=== PATIENT | female | born 1995 | race Caucasian/White ===

== ENCOUNTER 2022-09-03 14:31 | Observation (INO) ==
[2022-09-03 15:46] LABS: Basophils # (auto) 0.02 K/uL (0-0.2); Basophils % (auto) 0.3 %; Eosinophils # (auto) 0.04 K/uL (0-0.50); Eosinophils % (auto) 0.5 %; Hematocrit (blood only) 33.3 % (37.0-47.0); Hemoglobin 10.6 g/dl (12.0-16.0); Immature Granulocytes # (auto) 0.08 K/uL (0.01-0.20); Lymphocytes # (auto) 2.02 K/uL (1.2-3.4); Lymphocytes % (auto) 25.7 %; Mean Corpuscular Hemoglobin 25.9 pg (25.0-34.0); Mean Corpuscular Hgb Conc 31.8 g/dL (32.0-36.0); Mean Corpuscular Volume 81.2 fL (80.0-100.0); Mean Platelet Volume 11.5 fL (9.4-12.4); Monocytes % (auto) 7.6 %; Neutrophils # (auto) 5.09 K/uL (1.40-6.50); Neutrophils % (auto) 64.9 %; Platelet Count 181 K/uL (130-400); RDW Coefficient of Variation 14.5 % (11.5-14.5); RDW Standard Deviation 42.2 fL (36.4-46.3); White Blood Count 7.85 K/ul (4.8-10.8)
[2022-09-03 15:53] LABS: Albumin Globulin Ratio 1.3 (0.9-2); Albumin Level 3.4 gm/dl (3.4-5.0); Bilirubin,Total 0.3 mg/dl (0.2-1.0); Calcium 8.8 mg/dl (8.6-10.3); Creatinine Clr Calc Pharmacy 123.4 ml/min; Est GFR (African American) 139.2 ml/min; Est GFR (Non-African American) 120.1 ml/min; Globulin 2.7 gm/dl (2.5-4.0); Potassium 4.1 mmol/L (3.5-5.1); Total Protein 6.1 gm/dl (6.0-8.3)
[2022-09-03 15:58] LABS: Troponin I High Sensitivity 14.3 pg/ml (0-14)
[2022-09-03 16:19] LABS: INR 0.9 (0.9-1.1); Partial Thromboplastin Ratio 0.9; Partial Thromboplastin Time 23.6 Seconds (21.0-31.0); Prothrombin Time 9.9 Seconds (9.0-12.0)
--- NOTE | 2022-09-03 18:53 | Emergency Department Note ---
Impression & Plan Pre-eclampsia, Elevated troponin ED Provider Note INFORMANT: Patient ED PROVIDER(S): Lg Roca DO CHIEF COMPLAINT: Edema, weight gain, hypertension, preeclampsia PLAN: Disposition: Admission Outpatient prescription management: none Discussion with: [employer], Dr. Leal from cardiology, I spoke with the hospitalist, who will see the patient for admission/observation and further evaluation and consultation. MEDICAL DECISION MAKING: This is a 27-year-old female who presents to the ED with a chief complaint of evaluation for chest pain. The patient states that she saw her [employer] today for swelling of her legs, face and hands as well as a 13 pound weight gain over the past week. She was then noted to have a blood pressure 160/98 in the office. The patient's states that she was sent to L&D and the baby was checked and it was okay. Because she had some chest discomfort she was sent down here for evaluation. The patient states that it is left-sided and feels like a pressure. It sometimes radiates to the back and to the left shoulder. Her breathing se ems to be fine. Denies any other complaints at this time. No headaches. No visual changes. Her blood pressure here was 145/95. Exam reveals a gravid abdomen. Otherwise no abnormalities. Lungs are clear. Heart is regular rate and rhythm. The patient's twelve-lead EKG shows a normal sinus rhythm at a rate of 68. The white blood cell count was normal. Hemoglobin is 10.8. Platelet count is 181. Chemistry panel was unremarkable. Troponin is mildly elevated at 14.3. A second troponin was 21.3 CT scan of the chest did not show PE or other acute abnormality. I did speak with Dr. Leal from cardiology service. He recommends echocardiogram. I spoke with the hospitalist as well as the agency owner. The patient will be admitted to the gynecology service with medicine consultation. Triage Nursing notes reviewed. Vital Signs: reviewed Prior /Outside records reviewed: none Differential diagnosis: Diagnostics, as interpreted by me: 12 lead ECG: Normal sinus rhythm rate of 68. No ST elevation. No PVCs. Normal QTc Cardiac Monitoring ordered: Normal sinus rhythm in the 60s to 70s Medical decision rules: none Imaging studies: CT scan of the chest: No pneumothorax or obvious PE Procedures: none. Critical care: none. HPI: See MDM above. PAST MEDICAL HISTORY: See Below PAST SURGICAL HISTORY: See Below SOCIAL HISTORY: See Below HOME MEDICATIONS: See Below ALLERGIES: See Below VITALS: See Below PHYSICAL EXAMINATION: See MDM for positive findings otherwise unremarkable. CONSTITUTIONAL/VITAL SIGNS: Reviewed GENERAL:done as appropriate INTEGUMENTARY: done as appropriate HEAD: done as appropriate EYES: done as appropriate RESPIRATORY: done as appropriate CARDIOVASCULAR:done as appropriate GI/ABDOMEN:done as appropriate EXTREMITIES: done as appropriate NEUROLOGICAL: done as appropriate PSYCHIATRIC:done as appropriate MUSCULOSKELETAL:done as appropriate TRIAGE NURSING DOCUMENTATION REVIEWED. Past Med/Surg History Surgical History S/P S/P wisdom tooth extraction Family History Mother Pulmonary embolism Social History Smoking Status: Never smoker Feels Safe at Home: Yes Allergies Allergies Allergy/AdvReac Type Severity Reaction Status Date / Time morphine Allergy Severe skin Verified 09/03/22 23:52 redness immediately following iv morphine Pertussis Vaccines Allergy Severe Fever Verified 09/03/22 23:52 Home Meds Home Medications Medication Instructions Recorded Confirmed prenat.vits,ochoa,[id number] 1 tab PO DAILY 09/03/22 09/03/22 Results & Data (ED) Vital Signs Vital Signs - 24 hr 09/03/22 14:32 09/03/22 18:17 09/03/22 18:18 Temperature 36.8 C Temperature Source Temporal Artery Scan Pulse Rate 70 75 Pulse Rate [Apical] 71 Pulse Rate from SpO2 Sensor Respiratory Rate 20 16 Respiratory Effort / Characteristics Non-Labored Spontaneous Respiratory Depth Normal Blood Pressure 137/87 Blood Pressure [Left Arm] 145/95 H Blood Pressure Mean 103 Blood Pressure Mean [Left Arm] 111 Pulse Oximetry 98 97 Oxygen Delivery Method Room Air Sepsis Recent Fever Within 48 Hours No Sepsis New/Unexplained Change in Mental Status No Sepsis Action Taken by Nursing No Action Required 09/03/22 18:18 09/03/22 18:20 09/03/22 18:30 Temperature Temperature Source Pulse Rate 73 64 65 Pulse Rate [Apical] Pulse Rate from SpO2 Sensor 75 64 63 Respiratory Rate 17 25 H 21 Respiratory Effort / Characteristics Respiratory Depth Blood Pressure Blood Pressure [Left Arm] Blood Pressure Mean Blood Pressure Mean [Left Arm] Pulse Oximetry 98 100 100 Oxygen Delivery Method Sepsis Recent Fever Within 48 Hours Sepsis New/Unexplained Change in Mental Status Sepsis Action Taken by Nursing 09/03/22 18:40 09/03/22 18:50 09/03/22 19:00 Temperature Temperature Source Pulse Rate 76 65 63 Pulse Rate [Apical] Pulse Rate from SpO2 Sensor 75 65 63 Respiratory Rate 26 H 23 25 H Respiratory Effort / Characteristics Respiratory Depth Blood Pressure Blood Pressure [Left Arm] Blood Pressure Mean Blood Pressure Mean [Left Arm] Pulse Oximetry 100 100 98 Oxygen Delivery Method Sepsis Recent Fever Within 48 Hours Sepsis New/Unexplained Change in Mental Status Sepsis Action Taken by Nursing 09/03/22 19:10 09/03/22 19:20 09/03/22 19:30 Temperature Temperature Source Pulse Rate 61 60 63 Pulse Rate [Apical] Pulse Rate from SpO2 Sensor 60 61 64 Respiratory Rate 25 H 18 22 Respiratory Effort / Characteristics Respiratory Depth Blood Pressure Blood Pressure [Left Arm] Blood Pressure Mean Blood Pressure Mean [Left Arm] Pulse Oximetry 97 97 97 Oxygen Delivery Method Sepsis Recent Fever Within 48 Hours Sepsis New/Unexplained Change in Mental Status Sepsis Action Taken by Nursing 09/03/22 19:40 09/03/22 19:50 09/03/22 20:00 Temperature Temperature Source Pulse Rate 75 68 86 Pulse Rate [Apical] Pulse Rate from SpO2 Sensor 68 86 Respiratory Rate 25 H 19 22 Respiratory Effort / Characteristics Respiratory Depth Blood Pressure Blood Pressure [Left Arm] Blood Pressure Mean Blood Pressure Mean [Left Arm] Pulse Oximetry 98 100 Oxygen Delivery Method Sepsis Recent Fever Within 48 Hours Sepsis New/Unexplained Change in Mental Status Sepsis Action Taken by Nursing 09/03/22 20:10 09/03/22 20:20 09/03/22 20:30 Temperature Temperature Source Pulse Rate 70 67 66 Pulse Rate [Apical] Pulse Rate from SpO2 Sensor 73 68 66 Respiratory Rate 21 16 23 Respiratory Effort / Characteristics Respiratory Depth Blood Pressure Blood Pressure [Left Arm] Blood Pressure Mean Blood Pressure Mean [Left Arm] Pulse Oximetry 100 100 100 Oxygen Delivery Method Sepsis Recent Fever Within 48 Hours Sepsis New/Unexplained Change in Mental Status Sepsis Action Taken by Nursing 09/03/22 20:39 09/03/22 20:39 09/03/22 20:40 Temperature Temperature Source Pulse Rate 74 73 Pulse Rate [Apical] Pulse Rate from SpO2 Sensor 75 73 Respiratory Rate 27 H 19 Respiratory Effort / Characteristics Respiratory Depth Blood Pressure 123/72 Blood Pressure [Left Arm] Blood Pressure Mean 89 Blood Pressure Mean [Left Arm] Pulse Oximetry 100 100 Oxygen Delivery Method Sepsis Recent Fever Within 48 Hours Sepsis New/Unexplained Change in Mental Status Sepsis Action Taken by Nursing 09/03/22 22:17 09/03/22 20:50 09/03/22 21:00 Temperature Temperature Source Pulse Rate 62 63 Pulse Rate [Apical] Pulse Rate from SpO2 Sensor 64 Respiratory Rate 24 Respiratory Effort / Characteristics Respiratory Depth Blood Pressure 131/71 Blood Pressure [Left Arm] Blood Pressure Mean 91 Blood Pressure Mean [Left Arm] Pulse Oximetry 97 Oxygen Delivery Method Sepsis Recent Fever Within 48 Hours Sepsis New/Unexplained Change in Mental Status Sepsis Action Taken by Nursing 09/03/22 21:00 09/03/22 21:10 09/03/22 21:20 Temperature Temperature Source Pulse Rate 64 76 74 Pulse Rate [Apical] Pulse Rate from SpO2 Sensor 67 78 74 Respiratory Rate 20 25 H 19 Respiratory Effort / Characteristics Respiratory Depth Blood Pressure Blood Pressure [Left Arm] Blood Pressure Mean Blood Pressure Mean [Left Arm] Pulse Oximetry 97 97 99 Oxygen Delivery Method Sepsis Recent Fever Within 48 Hours Sepsis New/Unexplained Change in Mental Status Sepsis Action Taken by Nursing 09/03/22 21:42 09/03/22 21:46 09/03/22 21:46 Temperature Temperature Source Pulse Rate 71 Pulse Rate [Apical] Pulse Rate from SpO2 Sensor 111 H 70 Respiratory Rate 21 Respiratory Effort / Characteristics Respiratory Depth Blood Pressure 131/83 Blood Pressure [Left Arm] Blood Pressure Mean 99 Blood Pressure Mean [Left Arm] Pulse Oximetry 96 99 Oxygen Delivery Method Sepsis Recent Fever Within 48 Hours Sepsis New/Unexplained Change in Mental Status Sepsis Action Taken by Nursing 09/03/22 21:50 09/03/22 22:00 09/03/22 22:00 Temperature Temperature Source Pulse Rate 70 62 Pulse Rate [Apical] Pulse Rate from SpO2 Sensor 70 64 Respiratory Rate 26 H 19 Respiratory Effort / Characteristics Respiratory Depth Blood Pressure 130/63 Blood Pressure [Left Arm] Blood Pressure Mean 85 Blood Pressure Mean [Left Arm] Pulse Oximetry 97 97 Oxygen Delivery Method Sepsis Recent Fever Within 48 Hours Sepsis New/Unexplained Change in Mental Status Sepsis Action Taken by Nursing 09/03/22 22:10 09/03/22 22:20 09/03/22 22:30 Temperature Temperature Source Pulse Rate 79 62 Pulse Rate [Apical] Pulse Rate from SpO2 Sensor 66 62 Respiratory Rate 21 24 Respiratory Effort / Characteristics Respiratory Depth Blood Pressure 138/79 Blood Pressure [Left Arm] Blood Pressure Mean 98 Blood Pressure Mean [Left Arm] Pulse Oximetry 100 97 Oxygen Delivery Method Sepsis Recent Fever Within 48 Hours Sepsis New/Unexplained Change in Mental Status Sepsis Action Taken by Nursing 09/03/22 22:30 09/03/22 22:40 09/03/22 22:50 Temperature Temperature Source Pulse Rate 61 63 70 Pulse Rate [Apical] Pulse Rate from SpO2 Sensor 60 61 68 Respiratory Rate 17 24 19 Respiratory Effort / Characteristics Respiratory Depth Blood Pressure Blood Pressure [Left Arm] Blood Pressure Mean Blood Pressure Mean [Left Arm] Pulse Oximetry 98 97 98 Oxygen Delivery Method Sepsis Recent Fever Within 48 Hours Sepsis New/Unexplained Change in Mental Status Sepsis Action Taken by Nursing 09/03/22 23:00 09/03/22 23:00 09/03/22 23:30 Temperature Temperature Source Pulse Rate 57 L 63 Pulse Rate [Apical] Pulse Rate from SpO2 Sensor 58 L Respiratory Rate 20 16 Respiratory Effort / Characteristics Respiratory Depth Blood Pressure 139/80 129/84 Blood Pressure [Left Arm] Blood Pressure Mean 99 99 Blood Pressure Mean [Left Arm] Pulse Oximetry 97 98 Oxygen Delivery Method Room Air Sepsis Recent Fever Within 48 Hours Sepsis New/Unexplained Change in Mental Status Sepsis Action Taken by Nursing 09/04/22 00:00 Temperature Temperature Source Pulse Rate 67 Pulse Rate [Apical] Pulse Rate from SpO2 Sensor Respiratory Rate 14 Respiratory Effort / Characteristics Respiratory Depth Blood Pressure 123/77 Blood Pressure [Left Arm] Blood Pressure Mean 92 Blood Pressure Mean [Left Arm] Pulse Oximetry 99 Oxygen Delivery Method Room Air Sepsis Recent Fever Within 48 Hours Sepsis New/Unexplained Change in Mental Status Sepsis Action Taken by Nursing Laboratory Data 09/03/22 15:15 09/03/22 15:15 Lab Results 09/03/22 09/03/22 09/03/22 Range/Units 15:15 15:15 15:15 WBC 7.85 (4.8-10.8) K/ul RBC 4.10 L (4.20-5.40) M/uL Hgb 10.6 L (12.0-16.0) g/dl Hct 33.3 L (37.0-47.0) % MCV 81.2 (80.0-100.0) fL MCH 25.9 (25.0-34.0) pg MCHC 31.8 L (32.0-36.0) g/dL RDW Std Deviation 42.2 (36.4-46.3) fL RDW Coeff of Zack 14.5 (11.5-14.5) % Plt Count 181 (130-400) K/uL MPV 11.5 (9.4-12.4) fL Immature Gran % (Auto) 1.0 % Neut % (Auto) 64.9 % Lymph % (Auto) 25.7 % [place] % (Auto) 7.6 % Eos % (Auto) 0.5 % Baso % (Auto) 0.3 % Neut # (Auto) 5.09 (1.40-6.50) K/uL Lymph # (Auto) 2.02 (1.2-3.4) K/uL [place] # (Auto) 0.60 H (0.11-0.59) K/uL Eos # (Auto) 0.04 (0-0.50) K/uL Baso # (Auto) 0.02 (0-0.2) K/uL Immature Gran # (Auto) 0.08 (0.01-0.20) K/uL PT 9.9 (9.0-12.0) Seconds INR 0.9 (0.9-1.1) APTT 23.6 (21.0-31.0) Seconds PTT Ratio 0.9 Sodium 137 (136-145) mmol/L Potassium 4.1 (3.5-5.1) mmol/L Chloride 108 H (98-107) mmol/L Carbon Dioxide 22 (21-32) mmol/L Anion Gap 7 (3-11) BUN 9 (6-23) mg/dl Creatinine 0.69 (0.6-1.2) mg/dl Est Cr Clr Drug Dosing 123.4 ml/min Est GFR ( Amer) 139.2 ml/min Est GFR (Non-Af Amer) 120.1 ml/min BUN/Creatinine Ratio 13.0 (10-20) Glucose 84 (70-99(Fasting)) mg/dl Uric Acid 7.6 H (2.6-7.2) mg/dl Calcium 8.8 (8.6-10.3) mg/dl Total Bilirubin 0.3 (0.2-1.0) mg/dl AST 16 (13-39) U/L ALT 11 (7-52) U/L Alkaline Phosphatase 107 H (34-104) U/L Troponin I High Sens 14.3 H (0-14) pg/ml Total Protein 6.1 (6.0-8.3) gm/dl Albumin 3.4 (3.4-5.0) gm/dl Globulin 2.7 (2.5-4.0) gm/dl Albumin/Globulin Ratio 1.3 (0.9-2) // Range/Units 18:23 WBC (4.8-10.8) K/ul RBC (4.20-5.40) M/uL Hgb (12.0-16.0) g/dl Hct (37.0-47.0) % MCV (80.0-100.0) fL MCH (25.0-34.0) pg MCHC (32.0-36.0) g/dL RDW Std Deviation (36.4-46.3) fL RDW Coeff of Zack (11.5-14.5) % Plt Count (130-400) K/uL MPV (9.4-12.4) fL Immature Gran % (Auto) % Neut % (Auto) % Lymph % (Auto) % [place] % (Auto) % Eos % (Auto) % Baso % (Auto) % Neut # (Auto) (1.40-6.50) K/uL Lymph # (Auto) (1.2-3.4) K/uL [place] # (Auto) (0.11-0.59) K/uL Eos # (Auto) (0-0.50) K/uL Baso # (Auto) (0-0.2) K/uL Immature Gran # (Auto) (0.01-0.20) K/uL PT (9.0-12.0) Seconds INR (0.9-1.1) APTT (21.0-31.0) Seconds PTT Ratio Sodium (136-145) mmol/L Potassium (3.5-5.1) mmol/L Chloride (98-107) mmol/L Carbon Dioxide (21-32) mmol/L Anion Gap (3-11) BUN (6-23) mg/dl Creatinine (0.6-1.2) mg/dl Est Cr Clr Drug Dosing ml/min Est GFR ( Amer) ml/min Est GFR (Non-Af Amer) ml/min BUN/Creatinine Ratio (10-20) Glucose (70-99(Fasting)) mg/dl Uric Acid (2.6-7.2) mg/dl Calcium (8.6-10.3) mg/dl Total Bilirubin (0.2-1.0) mg/dl AST (13-39) U/L ALT (7-52) U/L Alkaline Phosphatase (34-104) U/L Troponin I High Sens 21.3 H (0-14) pg/ml Total Protein (6.0-8.3) gm/dl Albumin (3.4-5.0) gm/dl Globulin (2.5-4.0) gm/dl Albumin/Globulin Ratio (0.9-2) Administered Medications Discontinued Medications Ioversol (Optiray 320 500ml) 114 ml IV ONCE ONE Stop: 09/03/22 21:34 Last Admin: 09/03/22 21:33 Dose: 114 ml Documented By: NORAH Miscellaneous Information (Patient's Allergy Info Needs Entered) 1 each N/A Q30M [facility] Stop: 10/03/22 19:59 Last Admin: 09/03/22 23:51 Dose: Not Given Documented By: Admin: 09/03/22 23:51 Dose: Not Given Documented By: Admin: 09/03/22 23:51 Dose: Not Given Documented By: Admin: 09/03/22 23:51 Dose: Not Given Documented By: Admin: 09/03/22 23:50 Dose: Not Given Documented By: Admin: 09/03/22 23:50 Dose: Not Given Documented By: DML Imaging Data Radiologist's Impression: Chest CTA 09/03/22 21:09 Exam(s): CTA CHEST EXAM: CT Angiography Chest With Intravenous Contrast CLINICAL HISTORY: Reason for exam: chest pressure, r/o pe. TECHNIQUE: Axial computed tomographic angiography images of the chest with intravenous contrast. CTDI is 13.92 mGy and DLP is 381.02 mGy-cm. Automated exposure control was utilized for the study. A dose lowering technique was utilized adhering to the principles of ALARA. MIP reconstructed images were created and reviewed. COMPARISON: No relevant prior studies available. FINDINGS: Pulmonary arteries: Unremarkable. No pulmonary embolism. Aorta: No acute findings. No thoracic aortic aneurysm. Lungs: Unremarkable. No mass. No consolidation. Pleural space: Unremarkable. No significant effusion. No pneumothorax. Heart: Unremarkable. No cardiomegaly. No significant pericardial effusion. No evidence of RV dysfunction. Bones/joints: No acute fracture. No dislocation. Soft tissues: Unremarkable. Lymph nodes: Unremarkable. No enlarged lymph nodes. IMPRESSION: Normal chest CTA. No pulmonary embolism. Electronically signed by: Paris Jaeger M.D. 09/03/22 22:21 PM Discharge Plan Visit Data Chief Complaint: Chest Pain Stated Complaint: CHEST PAINSS ED Provider: Lg Roca Discharge Problem: Pre-eclampsia, Elevated troponin Patient Disposition: Being Evaluated by Hospitalist Forms Stand Alone Forms: [facility] [employer] Prescriptions Prescriptions: No Action Vitamin Tablet 1 tab PO DAILY Referrals Referrals: PCP,NO [Primary Care Provider] -
[2022-09-03 19:24] LABS: Uric Acid 7.6 mg/dl (2.6-7.2)
--- NOTE | 2022-09-03 20:20 | Electrocardiogram Report ---
Test Reason : Blood Pressure : / mmHG Vent. Rate : 068 BPM Atrial Rate : 068 BPM P-R Int : 122 ms QRS Dur : 074 ms QT Int : 408 ms P-R-T Axes : 045 023 021 degrees QTc Int : 433 ms Normal sinus rhythm Possible Left atrial enlargement Borderline ECG No previous ECGs available Confirmed by Brenton Holbrook ([id number]) on 09/03/2022 8:20:00 PM Referred By: Confirmed By:Ron Holbrook
[2022-09-03] MEDS ORDERED: OPTIRAY 320 500ml IV ONE (21:33)
--- NOTE | 2022-09-03 22:22 | CT Scan Report ---
Exam(s): CTA CHEST EXAM: CT Angiography Chest With Intravenous Contrast CLINICAL HISTORY: Reason for exam: chest pressure, r/o pe. TECHNIQUE: Axial computed tomographic angiography images of the chest with intravenous contrast. CTDI is 13.92 mGy and DLP is 381.02 mGy-cm. Automated exposure control was utilized for the study. A dose lowering technique was utilized adhering to the principles of ALARA. MIP reconstructed images were created and reviewed. COMPARISON: No relevant prior studies available. FINDINGS: Pulmonary arteries: Unremarkable. No pulmonary embolism. Aorta: No acute findings. No thoracic aortic aneurysm. Lungs: Unremarkable. No mass. No consolidation. Pleural space: Unremarkable. No significant effusion. No pneumothorax. Heart: Unremarkable. No cardiomegaly. No significant pericardial effusion. No evidence of RV dysfunction. Bones/joints: No acute fracture. No dislocation. Soft tissues: Unremarkable. Lymph nodes: Unremarkable. No enlarged lymph nodes. IMPRESSION: Normal chest CTA. No pulmonary embolism. Electronically signed by: Paris Jaeger M.D. 09/03/22 22:21 PM
[2022-09-03] MEDS ORDERED: ACETAMINOPHEN 325 MG TAB PO PRN (23:28)
--- NOTE | 2022-09-03 23:39 | History & Physical Report ---
Date of Service September 03, 2022 Assessment & Plan (1) Chest pain during : Plan: -discussed case w/ MFM who was in agreement for echo to r/o any kind of cardiomyopathy as ekg and ct pe did not demonstrate significant abnormalities. They are in agreement that pt may have ghtn or pre-eclampsia w/o severe features however this would not account for the cardiac symptoms or change in troponin. -discussed this w/ hospitalist attending who kindly will assist with troponin trending and echo, appreciate assistance (2) Elevated blood pressure affecting , antepartum: Plan: -pre-eclampsia labs were wnl, up:c not drawn so will get w/ am labs to complete workup. Did discuss w/ pt that would need to further watch bps as she may meet criteria for PIH which could impact remainder of care -had reactive NST today, so will continue daily NSTs. Pt notes good FM in ER as well History of Present Illness Chief Complaint: Chest pain Primary Care Provider: NO PCP 27 yo at 33wks gestation presented for evaluation due to chest pain, intermittent n/v and epigastric pain, swelling with associated wt gain of 10+lbs over the last week. A reactive NST was obtained on L&D and she was subsequently referred to ER for cardiac evaluation. +FM; denies regular ctx, LOF, VB. Initial BP in office was elevated at 160 but was normal on L&D. Did note few mild range BPs but none that needed treatment. Had one elevated BP in the ER but otherwise BPs were normal. Pre-eclampsia bloodwork was wnl, EKG possible L atrial enlargement, neg CT PE. Troponin initially was just elevated at 14.3 but had elevated repeat. ED physician did speak w/ cardiology who recommended echo and troponin trending so will admit pt for this with medicine consult to assist with echo and troponin trending Allergies Allergy/AdvReac Type Severity Reaction Status Date / Time morphine Allergy Severe skin Verified 09/03/22 23:52 redness immediately following iv morphine Pertussis Vaccines Allergy Severe Fever Verified 09/03/22 23:52 Home Medications Medication Instructions Recorded Confirmed Type prenat.vits,ochoa,tjs-xccs-cwhvo 1 tab PO DAILY 09/03/22 09/03/22 History Patient History Surgical History (Updated 09/03/22 @ 23:43 by Naomi Fontana MD) S/P S/P wisdom tooth extraction Family History (Updated 09/03/22 @ 23:44 by Naomi Fontana MD) Mother Pulmonary embolism Social History Smoking Status: Never smoker Feels Safe at Home: Yes Physical Exam Constitutional: WD/WN, vitals as above Respiratory: normal respiratory effort; no respiratory distress and no labored breathing Results & Data Vital Signs (Past 12 Hours) Vital Signs Temp Pulse Pulse Resp BP BP Pulse Ox 09/03/22 23:00 57 L 20 97 09/03/22 23:00 139/80 09/03/22 22:50 70 19 98 09/03/22 22:40 63 24 97 09/03/22 22:30 61 17 98 09/03/22 22:30 138/79 09/03/22 22:20 62 24 97 09/03/22 22:10 79 21 100 09/03/22 22:00 62 19 97 09/03/22 22:00 130/63 09/03/22 21:50 70 26 H 97 09/03/22 21:46 131/83 09/03/22 21:46 71 21 99 09/03/22 21:42 96 09/03/22 21:20 74 19 99 09/03/22 21:10 76 25 H 97 09/03/22 21:00 64 20 97 09/03/22 21:00 131/71 09/03/22 20:50 63 24 97 09/03/22 22:17 62 09/03/22 20:40 73 19 100 09/03/22 20:39 74 27 H 100 09/03/22 20:39 123/72 09/03/22 20:30 66 23 100 09/03/22 20:20 67 16 100 09/03/22 20:10 70 21 100 09/03/22 20:00 86 22 100 09/03/22 19:50 68 19 98 09/03/22 19:40 75 25 H 09/03/22 19:30 63 22 97 09/03/22 19:20 60 18 97 09/03/22 19:10 61 25 H 97 09/03/22 19:00 63 25 H 98 09/03/22 18:50 65 23 100 09/03/22 18:40 76 26 H 100 09/03/22 18:30 65 21 100 09/03/22 18:20 64 25 H 100 09/03/22 18:18 73 17 98 09/03/22 18:18 75 09/03/22 18:17 71 16 145/95 H 97 09/03/22 14:32 98.2 F 70 20 137/87 98 O2 Del Method 09/03/22 23:00 09/03/22 23:00 09/03/22 22:50 09/03/22 22:40 09/03/22 22:30 09/03/22 22:30 09/03/22 22:20 09/03/22 22:10 09/03/22 22:00 09/03/22 22:00 09/03/22 21:50 09/03/22 21:46 09/03/22 21:46 09/03/22 21:42 09/03/22 21:20 09/03/22 21:10 09/03/22 21:00 09/03/22 21:00 09/03/22 20:50 09/03/22 22:17 09/03/22 20:40 09/03/22 20:39 09/03/22 20:39 09/03/22 20:30 09/03/22 20:20 09/03/22 20:10 09/03/22 20:00 09/03/22 19:50 09/03/22 19:40 09/03/22 19:30 09/03/22 19:20 09/03/22 19:10 09/03/22 19:00 09/03/22 18:50 09/03/22 18:40 09/03/22 18:30 09/03/22 18:20 09/03/22 18:18 09/03/22 18:18 09/03/22 18:17 09/03/22 14:32 Room Air Laboratory Results 09/03/22 09/03/22 09/03/22 Range/Units 18:23 15:15 15:15 WBC (4.8-10.8) K/ul RBC (4.20-5.40) M/uL Hgb (12.0-16.0) g/dl Hct (37.0-47.0) % MCV (80.0-100.0) fL MCH (25.0-34.0) pg MCHC (32.0-36.0) g/dL RDW Std Deviation (36.4-46.3) fL RDW Coeff of Zack (11.5-14.5) % Plt Count (130-400) K/uL MPV (9.4-12.4) fL Immature Gran % (Auto) % Neut % (Auto) % Lymph % (Auto) % [place] % (Auto) % Eos % (Auto) % Baso % (Auto) % Neut # (Auto) (1.40-6.50) K/uL Lymph # (Auto) (1.2-3.4) K/uL [place] # (Auto) (0.11-0.59) K/uL Eos # (Auto) (0-0.50) K/uL Baso # (Auto) (0-0.2) K/uL Immature Gran # (Auto) (0.01-0.20) K/uL PT 9.9 (9.0-12.0) Seconds INR 0.9 (0.9-1.1) APTT 23.6 (21.0-31.0) Seconds PTT Ratio 0.9 Sodium 137 (136-145) mmol/L Potassium 4.1 (3.5-5.1) mmol/L Chloride 108 H (98-107) mmol/L Carbon Dioxide 22 (21-32) mmol/L Anion Gap 7 (3-11) BUN 9 (6-23) mg/dl Creatinine 0.69 (0.6-1.2) mg/dl Est Cr Clr Drug Dosing 123.4 ml/min Est GFR ( Amer) 139.2 ml/min Est GFR (Non-Af Amer) 120.1 ml/min BUN/Creatinine Ratio 13.0 (10-20) Glucose 84 (70-99(Fasting)) mg/dl Uric Acid 7.6 H (2.6-7.2) mg/dl Calcium 8.8 (8.6-10.3) mg/dl Total Bilirubin 0.3 (0.2-1.0) mg/dl AST 16 (13-39) U/L ALT 11 (7-52) U/L Alkaline Phosphatase 107 H (34-104) U/L Troponin I High Sens 21.3 H 14.3 H (0-14) pg/ml Total Protein 6.1 (6.0-8.3) gm/dl Albumin 3.4 (3.4-5.0) gm/dl Globulin 2.7 (2.5-4.0) gm/dl Albumin/Globulin Ratio 1.3 (0.9-2) 09/03/22 Range/Units 15:15 WBC 7.85 (4.8-10.8) K/ul RBC 4.10 L (4.20-5.40) M/uL Hgb 10.6 L (12.0-16.0) g/dl Hct 33.3 L (37.0-47.0) % MCV 81.2 (80.0-100.0) fL MCH 25.9 (25.0-34.0) pg MCHC 31.8 L (32.0-36.0) g/dL RDW Std Deviation 42.2 (36.4-46.3) fL RDW Coeff of Zack 14.5 (11.5-14.5) % Plt Count 181 (130-400) K/uL MPV 11.5 (9.4-12.4) fL Immature Gran % (Auto) 1.0 % Neut % (Auto) 64.9 % Lymph % (Auto) 25.7 % [place] % (Auto) 7.6 % Eos % (Auto) 0.5 % Baso % (Auto) 0.3 % Neut # (Auto) 5.09 (1.40-6.50) K/uL Lymph # (Auto) 2.02 (1.2-3.4) K/uL [place] # (Auto) 0.60 H (0.11-0.59) K/uL Eos # (Auto) 0.04 (0-0.50) K/uL Baso # (Auto) 0.02 (0-0.2) K/uL Immature Gran # (Auto) 0.08 (0.01-0.20) K/uL PT (9.0-12.0) Seconds INR (0.9-1.1) APTT (21.0-31.0) Seconds PTT Ratio Sodium (136-145) mmol/L Potassium (3.5-5.1) mmol/L Chloride (98-107) mmol/L Carbon Dioxide (21-32) mmol/L Anion Gap (3-11) BUN (6-23) mg/dl Creatinine (0.6-1.2) mg/dl Est Cr Clr Drug Dosing ml/min Est GFR ( Amer) ml/min Est GFR (Non-Af Amer) ml/min BUN/Creatinine Ratio (10-20) Glucose (70-99(Fasting)) mg/dl Uric Acid (2.6-7.2) mg/dl Calcium (8.6-10.3) mg/dl Total Bilirubin (0.2-1.0) mg/dl AST (13-39) U/L ALT (7-52) U/L Alkaline Phosphatase (34-104) U/L Troponin I High Sens (0-14) pg/ml Total Protein (6.0-8.3) gm/dl Albumin (3.4-5.0) gm/dl Globulin (2.5-4.0) gm/dl Albumin/Globulin Ratio (0.9-2) Coding Level of Care Code None Diagnoses Chest pain during O99.891; R07.9 Elevated blood pressure affecting , antepartum O16.9
[2022-09-03] MEDS: Patient's ALLERGY Info needs ENTERED SCH ×2 (23:50→23:51)
[2022-09-04 03:03] LABS: Appearance Urine Clear (Clear); Bacteria Urine Automated 1+ (Negative); Bilirubin Urine Negative (Negative); Blood Urine Negative (Negative); Color Urine Yellow; Epithelial Cell Urine Auto >30 /lpf (0-5); Glucose Urine UA Negative (Negative); Ketones Urine Negative (Negative); Leukocyte Esterase Urine 2+ (Negative); Nitrite Urine Negative (Negative); Protein Urine Negative (Negative); RBC Urine Automated 0-4 /hpf (0-4); Urobilinogen Urine Negative (Negative)
--- NOTE | 2022-09-04 03:03 | Hospitalist Consultation ---
Date of Consultation September 04, 2022 Assessment & Plan (1) Chest pain during : Etiology unclear. Patient had several blood pressure readings that were elevated. Now HD stable with BP at goal. Somewhat positional and pleuritic in nature - ?pericarditis, myocarditis?. No obvious pericardial effusion noted on CT chest Very mild elevation of troponin. No obvious changes of ischemia or pericarditis noted on EKG. -Continue telemetry monitoring -Trend troponin -Check 2D echo -Tylenol as needed for pain (2) Elevated troponin: As above. Etiology unclear at this time. ?myopericarditis? -Repeat troponin and echo as above OB management per primary team Thank you for this consultation. We will continue to follow with you and assist with management. History of Present Illness Reason for Consultation: chest pain, mild elevation in troponin Attending Physician: Naomi Fontana MD History of Present Illness Yolanda Pham is a pleasant 27yo female at 33 weeks gestation presenting with chest pain. Patient was seen by OB earlier today with complaint of 10# weight gain over the last week. She reports that earlier this week she woke up with significant edema. She has been having ongoing swelling of her legs, face, hands as well as nausea and some headache and blurry vision. Pre-eclampsia blood work performed by OB was all within normal limits. She denies contractions, spotting or vaginal discharge. States that the baby is moving appropriately. Last night around 17:00 she began developing substernal chest discomfort. The discomfort is left sided, 4-5/10 in severity with radiation down the left arm. She denies diaphoresis, SOB but has been having intermittent nausea. The chest discomfort is worse with laying flat and while in bed as well as worsened with deep breathing. No recent illness, vaccinations or sick contacts. EKG performed in the ER is unremarkable Troponin initially 14.3 with repeat at appx 3 hours increase to 21.3 Patient reports chest pain is ongoing No additional complaints at this time Allergies Allergy/AdvReac Type Severity Reaction Status Date / Time morphine Allergy Severe skin Verified 09/03/22 23:52 redness immediately following iv morphine Pertussis Vaccines Allergy Severe Fever Verified 09/03/22 23:52 Home Medications Medication Instructions Recorded Confirmed Type prenat.vits,ochoa,pjj-elpv-rcusp 1 tab PO DAILY 09/03/22 09/03/22 History Patient History Surgical History S/P S/P wisdom tooth extraction Family History Mother Pulmonary embolism Social History Smoking Status: Never smoker Feels Safe at Home: Yes Review of Systems Review of Systems: All systems reviewed & are unremarkable except as noted in HPI & below Physical Exam Physical Exam: General: patient resting comfortably, NAD, non-toxic in appearance, AA&O x 4 Skin: warm, dry, intact, no rashes or lesions HEENT: NC/AT, PERRL, EOMI, anicteric sclera, conjunctiva without injection, external ear normal to inspection and nontender, nares patent, moist mucus membranes, dentition intact, no oropharyngeal lesions, neck supple, trachea midline, no LAD, no thyromegaly, no JVD Heart: +S1/S2, regular, no m/r/g, no reproducible chest wall pain Lungs: equal air entry bilaterally, no rales/rhonchi/wheezes Abd: Gravid uterus, +BS, soft, NT/ND, no masses/organomegaly/ascites Ext: warm, 2+ pulses in UE/LE bilaterally, no clubbing/cyanosis or edema Neuro: nonfocal, patient AA&O x 4, speech intact, no facial droop, moving all extremities on command with equal strength 5/5 Results & Data Results & Data Vital Signs (Past 12 Hours) Vital Signs Temp Pulse Pulse Resp BP BP Pulse Ox 09/04/22 02:37 36.6 C 55 L 18 131/79 99 09/04/22 01:00 58 L 18 134/86 97 09/04/22 00:30 64 21 119/76 99 09/04/22 00:00 67 14 123/77 99 09/03/22 23:30 63 16 129/84 98 09/03/22 23:00 57 L 20 97 09/03/22 23:00 139/80 09/03/22 22:50 70 19 98 09/03/22 22:40 63 24 97 09/03/22 22:30 61 17 98 09/03/22 22:30 138/79 09/03/22 22:20 62 24 97 09/03/22 22:10 79 21 100 09/03/22 22:00 62 19 97 09/03/22 22:00 130/63 09/03/22 21:50 70 26 H 97 09/03/22 21:46 131/83 09/03/22 21:46 71 21 99 09/03/22 21:42 96 09/03/22 21:20 74 19 99 09/03/22 21:10 76 25 H 97 09/03/22 21:00 64 20 97 09/03/22 21:00 131/71 09/03/22 20:50 63 24 97 09/03/22 22:17 62 09/03/22 20:40 73 19 100 09/03/22 20:39 74 27 H 100 09/03/22 20:39 123/72 09/03/22 20:30 66 23 100 09/03/22 20:20 67 16 100 09/03/22 20:10 70 21 100 09/03/22 20:00 86 22 100 09/03/22 19:50 68 19 98 09/03/22 19:40 75 25 H 09/03/22 19:30 63 22 97 09/03/22 19:20 60 18 97 09/03/22 19:10 61 25 H 97 09/03/22 19:00 63 25 H 98 09/03/22 18:50 65 23 100 09/03/22 18:40 76 26 H 100 09/03/22 18:30 65 21 100 09/03/22 18:20 64 25 H 100 09/03/22 18:18 73 17 98 09/03/22 18:18 75 09/03/22 18:17 71 16 145/95 H 97 O2 Del Method 09/04/22 02:37 Room Air 09/04/22 01:00 Room Air 09/04/22 00:30 Room Air 09/04/22 00:00 Room Air 09/03/22 23:30 Room Air 09/03/22 23:00 09/03/22 23:00 09/03/22 22:50 09/03/22 22:40 09/03/22 22:30 09/03/22 22:30 09/03/22 22:20 09/03/22 22:10 09/03/22 22:00 09/03/22 22:00 09/03/22 21:50 09/03/22 21:46 09/03/22 21:46 09/03/22 21:42 09/03/22 21:20 09/03/22 21:10 09/03/22 21:00 09/03/22 21:00 09/03/22 20:50 09/03/22 22:17 09/03/22 20:40 09/03/22 20:39 09/03/22 20:39 09/03/22 20:30 09/03/22 20:20 09/03/22 20:10 09/03/22 20:00 09/03/22 19:50 09/03/22 19:40 09/03/22 19:30 09/03/22 19:20 09/03/22 19:10 09/03/22 19:00 09/03/22 18:50 09/03/22 18:40 09/03/22 18:30 09/03/22 18:20 09/03/22 18:18 09/03/22 18:18 09/03/22 18:17 Laboratory Results Laboratory Results WBC 7.85 K/ul (4.8-10.8) 09/03/22 15:15 RBC 4.10 M/uL (4.20-5.40) L 09/03/22 15:15 Hgb 10.6 g/dl (12.0-16.0) L 09/03/22 15:15 Hct 33.3 % (37.0-47.0) L 09/03/22 15:15 MCV 81.2 fL (80.0-100.0) 09/03/22 15:15 MCH 25.9 pg (25.0-34.0) 09/03/22 15:15 MCHC 31.8 g/dL (32.0-36.0) L 09/03/22 15:15 RDW Std Deviation 42.2 fL (36.4-46.3) 09/03/22 15:15 RDW Coeff of Zack 14.5 % (11.5-14.5) 09/03/22 15:15 Plt Count 181 K/uL (130-400) 09/03/22 15:15 MPV 11.5 fL (9.4-12.4) 09/03/22 15:15 Immature Gran % (Auto) 1.0 % 09/03/22 15:15 Neut % (Auto) 64.9 % 09/03/22 15:15 Lymph % (Auto) 25.7 % 09/03/22 15:15 [place] % (Auto) 7.6 % 09/03/22 15:15 Eos % (Auto) 0.5 % 09/03/22 15:15 Baso % (Auto) 0.3 % 09/03/22 15:15 Neut # (Auto) 5.09 K/uL (1.40-6.50) 09/03/22 15:15 Lymph # (Auto) 2.02 K/uL (1.2-3.4) 09/03/22 15:15 [place] # (Auto) 0.60 K/uL (0.11-0.59) H 09/03/22 15:15 Eos # (Auto) 0.04 K/uL (0-0.50) 09/03/22 15:15 Baso # (Auto) 0.02 K/uL (0-0.2) 09/03/22 15:15 Immature Gran # (Auto) 0.08 K/uL (0.01-0.20) 09/03/22 15:15 PT 9.9 Seconds (9.0-12.0) 09/03/22 15:15 INR 0.9 (0.9-1.1) 09/03/22 15:15 APTT 23.6 Seconds (21.0-31.0) 09/03/22 15:15 PTT Ratio 0.9 09/03/22 15:15 Sodium 137 mmol/L (136-145) 09/03/22 15:15 Potassium 4.1 mmol/L (3.5-5.1) 09/03/22 15:15 Chloride 108 mmol/L (98-107) H 09/03/22 15:15 Carbon Dioxide 22 mmol/L (21-32) 09/03/22 15:15 Anion Gap 7 (3-11) 09/03/22 15:15 BUN 9 mg/dl (6-23) 09/03/22 15:15 Creatinine 0.69 mg/dl (0.6-1.2) 09/03/22 15:15 Est Cr Clr Drug Dosing 123.4 ml/min 09/03/22 15:15 Est GFR ( Amer) 139.2 ml/min 09/03/22 15:15 Est GFR (Non-Af Amer) 120.1 ml/min 09/03/22 15:15 BUN/Creatinine Ratio 13.0 (10-20) 09/03/22 15:15 Glucose 84 mg/dl (70-99(Fasting)) 09/03/22 15:15 Uric Acid 7.6 mg/dl (2.6-7.2) H 09/03/22 15:15 Calcium 8.8 mg/dl (8.6-10.3) 09/03/22 15:15 Total Bilirubin 0.3 mg/dl (0.2-1.0) 09/03/22 15:15 AST 16 U/L (13-39) 09/03/22 15:15 ALT 11 U/L (7-52) 09/03/22 15:15 Alkaline Phosphatase 107 U/L (34-104) H 09/03/22 15:15 Troponin I High Sens 21.3 pg/ml (0-14) H 09/03/22 18:23 Total Protein 6.1 gm/dl (6.0-8.3) 09/03/22 15:15 Albumin 3.4 gm/dl (3.4-5.0) 09/03/22 15:15 Globulin 2.7 gm/dl (2.5-4.0) 09/03/22 15:15 Albumin/Globulin Ratio 1.3 (0.9-2) 09/03/22 15:15 SARS-CoV-2, RNA, NAAT NEGATIVE (NEGATIVE) 09/04/22 00:10 Impressions Chest CTA 09/03/22 21:09 Exam(s): CTA CHEST EXAM: CT Angiography Chest With Intravenous Contrast CLINICAL HISTORY: Reason for exam: chest pressure, r/o pe. TECHNIQUE: Axial computed tomographic angiography images of the chest with intravenous contrast. CTDI is 13.92 mGy and DLP is 381.02 mGy-cm. Automated exposure control was utilized for the study. A dose lowering technique was utilized adhering to the principles of ALARA. MIP reconstructed images were created and reviewed. COMPARISON: No relevant prior studies available. FINDINGS: Pulmonary arteries: Unremarkable. No pulmonary embolism. Aorta: No acute findings. No thoracic aortic aneurysm. Lungs: Unremarkable. No mass. No consolidation. Pleural space: Unremarkable. No significant effusion. No pneumothorax. Heart: Unremarkable. No cardiomegaly. No significant pericardial effusion. No evidence of RV dysfunction. Bones/joints: No acute fracture. No dislocation. Soft tissues: Unremarkable. Lymph nodes: Unremarkable. No enlarged lymph nodes. IMPRESSION: Normal chest CTA. No pulmonary embolism. Electronically signed by: Paris Jaeger M.D. 09/03/22 22:21 PM ECG Additional Comments: EKG with NSR at 68 normal axis, JS=718, QRS=74, ZGn=912, no acute ischemic changes PG Care Time/CCT Total # of Minutes Spent Total Time Spent with Patient: Total time spent is greater than 50% in coordination of care (as documented) at patient's floor/unit and/or counseling patient: Coding Level of Care Code 54433 IN/OBS CONSULT LVL 3,45M Diagnoses Chest pain during O99.891; R07.9 Elevated troponin R77.8
[2022-09-04 03:17] LABS: Total Protein Urine Random 9.4 mg/dl (0-11.9)
[2022-09-04 03:23] LABS: Creatinine Urine Random 30.9 mg/dl; Protein Creatinine Ratio Urine 0.3 (0-0.2)
[2022-09-04 04:12] LABS: Basophils # (auto) 0.02 K/uL (0-0.2); Basophils % (auto) 0.3 %; Eosinophils # (auto) 0.04 K/uL (0-0.50); Eosinophils % (auto) 0.5 %; Hemoglobin 9.7 g/dl (12.0-16.0); Immature Granulocytes # (auto) 0.05 K/uL (0.01-0.20); Immature Granulocytes % (auto) 0.6 %; Lymphocytes # (auto) 2.11 K/uL (1.2-3.4); Lymphocytes % (auto) 26.6 %; Mean Corpuscular Hemoglobin 26.3 pg (25.0-34.0); Mean Corpuscular Hgb Conc 32.3 g/dL (32.0-36.0); Mean Corpuscular Volume 81.3 fL (80.0-100.0); Mean Platelet Volume 11.8 fL (9.4-12.4); Monocytes # (auto) 0.65 K/uL (0.11-0.59); Monocytes % (auto) 8.2 %; Neutrophils # (auto) 5.05 K/uL (1.40-6.50); Neutrophils % (auto) 63.8 %; Platelet Count 165 K/uL (130-400); RDW Coefficient of Variation 14.6 % (11.5-14.5); RDW Standard Deviation 42.5 fL (36.4-46.3); Red Blood Count 3.69 M/uL (4.20-5.40); White Blood Count 7.92 K/ul (4.8-10.8)
[2022-09-04 04:28] LABS: Albumin Globulin Ratio 1.3 (0.9-2); Albumin Level 2.9 gm/dl (3.4-5.0); BUN Creatinine Ratio 15.8 (10-20); Bilirubin,Total 0.2 mg/dl (0.2-1.0); Calcium 8.6 mg/dl (8.6-10.3); Creatinine Clr Calc Pharmacy 149.3 ml/min; Est GFR (African American) 148.3 ml/min; Est GFR (Non-African American) 127.9 ml/min; Globulin 2.3 gm/dl (2.5-4.0); Potassium 3.8 mmol/L (3.5-5.1); Total Protein 5.2 gm/dl (6.0-8.3)
--- NOTE | 2022-09-04 08:01 | Obstetrical Progress Note ---
Date of Service September 04, 2022 Assessment & Plan (1) Chest pain during : Plan: -3am troponin downtrended from prior, there is 7am set ordered -echo ordered (2) Elevated blood pressure affecting , antepartum: Plan: -BPs remained normal down in ER prior to coming up. UPC was 0.3. Discussed w/ pt if mild ranges further develop would meet criteria for pre-eclampsia w/o severe features which would impact timing of delivery and frequency of visits leading up to it -daily NSTs Admission and Anticipated Discharge Date Admission Date: September 03, 2022 Subjective Had an ok night, got up to floor around 2AM so not much sleep. +FM; denies ctx, LOF, VB. Chest discomfort is more like sharp pain currently than the pressure previously, same location. Denies SOB. Some heartburn type epigsatric discomfort that is separate from the chest pain Physical Exam Constitutional: WD/WN, vitals as above Respiratory: normal respiratory effort; no respiratory distress and no labored breathing Gastrointestinal (Abdomen): Abd soft, gravid, NT Results & Data Vital Signs (Past 12 Hours) Vital Signs Temp Pulse Pulse Pulse Resp BP BP 09/04/22 07:02 74 09/04/22 06:59 98.4 F 55 L 20 149/89 H 09/04/22 03:39 59 L 09/04/22 02:39 97.9 F 55 L 18 131/79 09/04/22 02:37 97.9 F 55 L 18 131/79 09/04/22 01:00 58 L 18 134/86 09/04/22 00:30 64 21 119/76 09/04/22 00:00 67 14 123/77 09/03/22 23:30 63 16 129/84 09/03/22 23:00 57 L 20 09/03/22 23:00 139/80 09/03/22 22:50 70 19 09/03/22 22:40 63 24 09/03/22 22:30 61 17 09/03/22 22:30 138/79 09/03/22 22:20 62 24 09/03/22 22:10 79 21 09/03/22 22:00 62 19 09/03/22 22:00 130/63 09/03/22 21:50 70 26 H 09/03/22 21:46 131/83 09/03/22 21:46 71 21 09/03/22 21:42 09/03/22 21:20 74 19 09/03/22 21:10 76 25 H 09/03/22 21:00 64 20 09/03/22 21:00 131/71 09/03/22 20:50 63 24 09/03/22 22:17 62 09/03/22 20:40 73 19 09/03/22 20:39 74 27 H 09/03/22 20:39 123/72 09/03/22 20:30 66 23 09/03/22 20:20 67 16 09/03/22 20:10 70 21 09/03/22 20:00 86 22 Pulse Ox O2 Del Method 09/04/22 07:02 09/04/22 06:59 97 Room Air 09/04/22 03:39 09/04/22 02:39 99 Room Air 09/04/22 02:37 99 Room Air 09/04/22 01:00 97 Room Air 09/04/22 00:30 99 Room Air 09/04/22 00:00 99 Room Air 09/03/22 23:30 98 Room Air 09/03/22 23:00 97 09/03/22 23:00 09/03/22 22:50 98 09/03/22 22:40 97 09/03/22 22:30 98 09/03/22 22:30 09/03/22 22:20 97 09/03/22 22:10 100 09/03/22 22:00 97 09/03/22 22:00 09/03/22 21:50 97 09/03/22 21:46 09/03/22 21:46 99 09/03/22 21:42 96 09/03/22 21:20 99 09/03/22 21:10 97 09/03/22 21:00 97 09/03/22 21:00 09/03/22 20:50 97 09/03/22 22:17 09/03/22 20:40 100 09/03/22 20:39 100 09/03/22 20:39 09/03/22 20:30 100 09/03/22 20:20 100 09/03/22 20:10 100 09/03/22 20:00 100 Laboratory Results 09/04/22 09/04/22 09/04/22 Range/Units 07:22 03:31 03:31 WBC (4.8-10.8) K/ul RBC (4.20-5.40) M/uL Hgb (12.0-16.0) g/dl Hct (37.0-47.0) % MCV (80.0-100.0) fL MCH (25.0-34.0) pg MCHC (32.0-36.0) g/dL RDW Std Deviation (36.4-46.3) fL RDW Coeff of Zack (11.5-14.5) % Plt Count (130-400) K/uL MPV (9.4-12.4) fL Immature Gran % (Auto) % Neut % (Auto) % Lymph % (Auto) % Hardy % (Auto) % Eos % (Auto) % Baso % (Auto) % Neut # (Auto) (1.40-6.50) K/uL Lymph # (Auto) (1.2-3.4) K/uL Hardy # (Auto) (0.11-0.59) K/uL Eos # (Auto) (0-0.50) K/uL Baso # (Auto) (0-0.2) K/uL Immature Gran # (Auto) (0.01-0.20) K/uL PT (9.0-12.0) Seconds INR (0.9-1.1) APTT (21.0-31.0) Seconds PTT Ratio Sodium 136 (136-145) mmol/L Potassium 3.8 (3.5-5.1) mmol/L Chloride 109 H (98-107) mmol/L Carbon Dioxide 20 L (21-32) mmol/L Anion Gap 7 (3-11) BUN 9 (6-23) mg/dl Creatinine 0.57 L (0.6-1.2) mg/dl Est Cr Clr Drug Dosing 149.3 ml/min Est GFR ( Amer) 148.3 ml/min Est GFR (Non-Af Amer) 127.9 ml/min BUN/Creatinine Ratio 15.8 (10-20) Glucose 89 (70-99(Fasting)) mg/dl Uric Acid (2.6-7.2) mg/dl Calcium 8.6 (8.6-10.3) mg/dl Total Bilirubin 0.2 (0.2-1.0) mg/dl AST 14 (13-39) U/L ALT 9 (7-52) U/L Alkaline Phosphatase 93 (34-104) U/L Troponin I High Sens Pending 16.9 H D (0-14) pg/ml Total Protein 5.2 L (6.0-8.3) gm/dl Albumin 2.9 L (3.4-5.0) gm/dl Globulin 2.3 L (2.5-4.0) gm/dl Albumin/Globulin Ratio 1.3 (0.9-2) Urine Color Urine Appearance (Clear) Urine pH (4.5-7.5) Ur Specific [place] (1.000-1.030) Urine Protein (Negative) Urine Glucose (UA) (Negative) Urine Ketones (Negative) Urine Blood (Negative) Urine Nitrite (Negative) Urine Bilirubin (Negative) Urine Urobilinogen (Negative) Ur Leukocyte Esterase (Negative) Urine WBC (Auto) (0-5) /hpf Urine RBC (Auto) (0-4) /hpf U Hyaline Cast (Auto) (0-5) /lpf U Epithel Cells (Auto) (0-5) /lpf Urine Bacteria (Auto) (Negative) Ur Random Creatinine mg/dl U Random Total Protein (0-11.9) mg/dl Protein/Creatinin Ratio (0-0.2) SARS-CoV-2, RNA, NAAT (NEGATIVE) 09/04/22 09/04/22 09/04/22 Range/Units 03:31 02:10 02:10 WBC 7.92 (4.8-10.8) K/ul RBC 3.69 L (4.20-5.40) M/uL Hgb 9.7 L (12.0-16.0) g/dl Hct 30.0 L (37.0-47.0) % MCV 81.3 (80.0-100.0) fL MCH 26.3 (25.0-34.0) pg MCHC 32.3 (32.0-36.0) g/dL RDW Std Deviation 42.5 (36.4-46.3) fL RDW Coeff of Zack 14.6 H (11.5-14.5) % Plt Count 165 (130-400) K/uL MPV 11.8 (9.4-12.4) fL Immature Gran % (Auto) 0.6 % Neut % (Auto) 63.8 % Lymph % (Auto) 26.6 % Hardy % (Auto) 8.2 % Eos % (Auto) 0.5 % Baso % (Auto) 0.3 % Neut # (Auto) 5.05 (1.40-6.50) K/uL Lymph # (Auto) 2.11 (1.2-3.4) K/uL Hardy # (Auto) 0.65 H (0.11-0.59) K/uL Eos # (Auto) 0.04 (0-0.50) K/uL Baso # (Auto) 0.02 (0-0.2) K/uL Immature Gran # (Auto) 0.05 (0.01-0.20) K/uL PT (9.0-12.0) Seconds INR (0.9-1.1) APTT (21.0-31.0) Seconds PTT Ratio Sodium (136-145) mmol/L Potassium (3.5-5.1) mmol/L Chloride (98-107) mmol/L Carbon Dioxide (21-32) mmol/L Anion Gap (3-11) BUN (6-23) mg/dl Creatinine (0.6-1.2) mg/dl Est Cr Clr Drug Dosing ml/min Est GFR ( Amer) ml/min Est GFR (Non-Af Amer) ml/min BUN/Creatinine Ratio (10-20) Glucose (70-99(Fasting)) mg/dl Uric Acid (2.6-7.2) mg/dl Calcium (8.6-10.3) mg/dl Total Bilirubin (0.2-1.0) mg/dl AST (13-39) U/L ALT (7-52) U/L Alkaline Phosphatase (34-104) U/L Troponin I High Sens (0-14) pg/ml Total Protein (6.0-8.3) gm/dl Albumin (3.4-5.0) gm/dl Globulin (2.5-4.0) gm/dl Albumin/Globulin Ratio (0.9-2) Urine Color Yellow Urine Appearance Clear (Clear) Urine pH 7.0 (4.5-7.5) Ur Specific [place] 1.020 (1.000-1.030) Urine Protein Negative (Negative) Urine Glucose (UA) Negative (Negative) Urine Ketones Negative (Negative) Urine Blood Negative (Negative) Urine Nitrite Negative (Negative) Urine Bilirubin Negative (Negative) Urine Urobilinogen Negative (Negative) Ur Leukocyte Esterase 2+ H (Negative) Urine WBC (Auto) 5-10 H (0-5) /hpf Urine RBC (Auto) 0-4 (0-4) /hpf U Hyaline Cast (Auto) 1-5 (0-5) /lpf U Epithel Cells (Auto) >30 H (0-5) /lpf Urine Bacteria (Auto) 1+ H (Negative) Ur Random Creatinine 30.9 mg/dl U Random Total Protein 9.4 (0-11.9) mg/dl Protein/Creatinin Ratio 0.3 H (0-0.2) SARS-CoV-2, RNA, NAAT (NEGATIVE) 09/04/22 09/03/22 09/03/22 Range/Units 00:10 18:23 15:15 WBC (4.8-10.8) K/ul RBC (4.20-5.40) M/uL Hgb (12.0-16.0) g/dl Hct (37.0-47.0) % MCV (80.0-100.0) fL MCH (25.0-34.0) pg MCHC (32.0-36.0) g/dL RDW Std Deviation (36.4-46.3) fL RDW Coeff of Zack (11.5-14.5) % Plt Count (130-400) K/uL MPV (9.4-12.4) fL Immature Gran % (Auto) % Neut % (Auto) % Lymph % (Auto) % Hardy % (Auto) % Eos % (Auto) % Baso % (Auto) % Neut # (Auto) (1.40-6.50) K/uL Lymph # (Auto) (1.2-3.4) K/uL Hardy # (Auto) (0.11-0.59) K/uL Eos # (Auto) (0-0.50) K/uL Baso # (Auto) (0-0.2) K/uL Immature Gran # (Auto) (0.01-0.20) K/uL PT (9.0-12.0) Seconds INR (0.9-1.1) APTT (21.0-31.0) Seconds PTT Ratio Sodium 137 (136-145) mmol/L Potassium 4.1 (3.5-5.1) mmol/L Chloride 108 H (98-107) mmol/L Carbon Dioxide 22 (21-32) mmol/L Anion Gap 7 (3-11) BUN 9 (6-23) mg/dl Creatinine 0.69 (0.6-1.2) mg/dl Est Cr Clr Drug Dosing 123.4 ml/min Est GFR ( Amer) 139.2 ml/min Est GFR (Non-Af Amer) 120.1 ml/min BUN/Creatinine Ratio 13.0 (10-20) Glucose 84 (70-99(Fasting)) mg/dl Uric Acid 7.6 H (2.6-7.2) mg/dl Calcium 8.8 (8.6-10.3) mg/dl Total Bilirubin 0.3 (0.2-1.0) mg/dl AST 16 (13-39) U/L ALT 11 (7-52) U/L Alkaline Phosphatase 107 H (34-104) U/L Troponin I High Sens 21.3 H 14.3 H (0-14) pg/ml Total Protein 6.1 (6.0-8.3) gm/dl Albumin 3.4 (3.4-5.0) gm/dl Globulin 2.7 (2.5-4.0) gm/dl Albumin/Globulin Ratio 1.3 (0.9-2) Urine Color Urine Appearance (Clear) Urine pH (4.5-7.5) Ur Specific [place] (1.000-1.030) Urine Protein (Negative) Urine Glucose (UA) (Negative) Urine Ketones (Negative) Urine Blood (Negative) Urine Nitrite (Negative) Urine Bilirubin (Negative) Urine Urobilinogen (Negative) Ur Leukocyte Esterase (Negative) Urine WBC (Auto) (0-5) /hpf Urine RBC (Auto) (0-4) /hpf U Hyaline Cast (Auto) (0-5) /lpf U Epithel Cells (Auto) (0-5) /lpf Urine Bacteria (Auto) (Negative) Ur Random Creatinine mg/dl U Random Total Protein (0-11.9) mg/dl Protein/Creatinin Ratio (0-0.2) SARS-CoV-2, RNA, NAAT NEGATIVE (NEGATIVE) 09/03/22 09/03/22 Range/Units 15:15 15:15 WBC 7.85 (4.8-10.8) K/ul RBC 4.10 L (4.20-5.40) M/uL Hgb 10.6 L (12.0-16.0) g/dl Hct 33.3 L (37.0-47.0) % MCV 81.2 (80.0-100.0) fL MCH 25.9 (25.0-34.0) pg MCHC 31.8 L (32.0-36.0) g/dL RDW Std Deviation 42.2 (36.4-46.3) fL RDW Coeff of Zack 14.5 (11.5-14.5) % Plt Count 181 (130-400) K/uL MPV 11.5 (9.4-12.4) fL Immature Gran % (Auto) 1.0 % Neut % (Auto) 64.9 % Lymph % (Auto) 25.7 % Hardy % (Auto) 7.6 % Eos % (Auto) 0.5 % Baso % (Auto) 0.3 % Neut # (Auto) 5.09 (1.40-6.50) K/uL Lymph # (Auto) 2.02 (1.2-3.4) K/uL Hardy # (Auto) 0.60 H (0.11-0.59) K/uL Eos # (Auto) 0.04 (0-0.50) K/uL Baso # (Auto) 0.02 (0-0.2) K/uL Immature Gran # (Auto) 0.08 (0.01-0.20) K/uL PT 9.9 (9.0-12.0) Seconds INR 0.9 (0.9-1.1) APTT 23.6 (21.0-31.0) Seconds PTT Ratio 0.9 Sodium (136-145) mmol/L Potassium (3.5-5.1) mmol/L Chloride (98-107) mmol/L Carbon Dioxide (21-32) mmol/L Anion Gap (3-11) BUN (6-23) mg/dl Creatinine (0.6-1.2) mg/dl Est Cr Clr Drug Dosing ml/min Est GFR ( Amer) ml/min Est GFR (Non-Af Amer) ml/min BUN/Creatinine Ratio (10-20) Glucose (70-99(Fasting)) mg/dl Uric Acid (2.6-7.2) mg/dl Calcium (8.6-10.3) mg/dl Total Bilirubin (0.2-1.0) mg/dl AST (13-39) U/L ALT (7-52) U/L Alkaline Phosphatase (34-104) U/L Troponin I High Sens (0-14) pg/ml Total Protein (6.0-8.3) gm/dl Albumin (3.4-5.0) gm/dl Globulin (2.5-4.0) gm/dl Albumin/Globulin Ratio (0.9-2) Urine Color Urine Appearance (Clear) Urine pH (4.5-7.5) Ur Specific [place] (1.000-1.030) Urine Protein (Negative) Urine Glucose (UA) (Negative) Urine Ketones (Negative) Urine Blood (Negative) Urine Nitrite (Negative) Urine Bilirubin (Negative) Urine Urobilinogen (Negative) Ur Leukocyte Esterase (Negative) Urine WBC (Auto) (0-5) /hpf Urine RBC (Auto) (0-4) /hpf U Hyaline Cast (Auto) (0-5) /lpf U Epithel Cells (Auto) (0-5) /lpf Urine Bacteria (Auto) (Negative) Ur Random Creatinine mg/dl U Random Total Protein (0-11.9) mg/dl Protein/Creatinin Ratio (0-0.2) SARS-CoV-2, RNA, NAAT (NEGATIVE) PG Care Time/CCT Total # of Minutes Spent Total Time Spent with Patient: Total time spent is greater than 50% in coordination of care (as documented) at patient's floor/unit and/or counseling patient: Coding Level of Care Code 01288 SUB INP/OBS CARE 1/25MIN Diagnoses Chest pain during O99.891; R07.9 Elevated blood pressure affecting , antepartum O16.9
[2022-09-04 09:00] LABS: Ferritin 15.3 ng/ml (8-388)
--- NOTE | 2022-09-04 11:01 | Cardiology Consultation ---
Date of Consultation September 04, 2022 Assessment & Plan (1) Chest pain during : -no evidence of an acute coronary syndrome. -symptoms are pleuritic and positional raising the possibility of pericarditis. -no evidence of pericarditis by EKG on admission, and this morning. -echocardiogram is normal the swelling out myocarditis. -CT scan of the chest is also normal. -case discussed with Dr. Bryson. -will administer a dose of Tylenol (musculoskeletal verses subclinical pericarditis). -if Tylenol unsuccessful, will administer GI cocktail (? GERD). (2) Elevated troponin: -mild elevation could be related to her new diagnosis of preeclampsia/gestational hypertension. -as above, no evidence of an acute coronary syndrome. -high sensitivity troponin now normal. History of Present Illness Attending Physician: Naomi Fontana MD History of Present Illness Mrs. Pham is a 27 year old, 33 weeks gestation, female admitted yesterday with a chest pain syndrome in a very mildly elevated high sensitive troponin. This consultation was ordered to assist in her cardiac management. The patient was in her usual state of health until approximately 5:00 p.m. on September 03. She developed a pressure sensation in her chest diffusely. There was no associated shortness of breath or diaphoresis. She had intermittent episodes of nausea but no vomiting. She felt that the discomfort radiated toward her left shoulder at times. She does note the pressure sensation to intensify if she lies supine or takes in a deep breath. Her symptoms as described have been persistent. Her discomfort does not change with ambulation. There is no tenderness in her chest. She presented to emergency room yesterday with the above complaints. A high sensitivity troponin was mildly elevated 14.3 (upper limits of normal 14.0). CT scan of the chest showed no evidence of a pulmonary embolism or any acute findings within her aorta. The heart was normal in size without evidence of cardiomegaly, pericardial effusion, or right ventricular dysfunction. Her EKG showed sinus rhythm without any acute findings. Blood pressure was 145/95 on presentation. Hospitalization was recommended. The patient noted a 13 lb weight gain and increasing lower extremity edema over the 7 days prior to presentation. The patient continues to note a vague pressure sensation in her chest. This discomfort increases with deep breathing and assuming the supine position. The patient explains that this is something I can deal with. Past medical and surgical history 1. section 2. Removal of wisdom teeth Social history and lives with her and son. 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 No tobacco or alcohol Family history Father at age 51 from renal failure Mother is 50 and healthy Her sister is alive and well Review of systems A 10 review systems was negative except that described above. Allergies Allergy/AdvReac Type Severity Reaction Status Date / Time morphine Allergy Severe skin Verified 09/03/22 23:52 redness immediately following iv morphine Pertussis Vaccines Allergy Severe Fever Verified 09/03/22 23:52 Home Medications Medication Instructions Recorded Confirmed Type prenat.vits,ochoa,xxu-yixc-wpnvm 1 tab PO DAILY 09/03/22 09/03/22 History Patient History Surgical History S/P S/P wisdom tooth extraction Family History Mother Pulmonary embolism Social History Smoking Status: Never smoker Hx Substance Use: No Preferred Language: Pashto Communication Ability: Effective Die 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 HEENT exam is negative. Neck is supple with full carotid upstrokes. No carotid bruits. Jugular is pressure is flat at 90. There is no thyromegaly. Cardiovascular exam reveals a regular rhythm with normal S1 and S2. No S3, S4, murmurs, or rubs are noted. Lungs are clear without rales, rhonchi, wheezes. Chest notes no tenderness to palpation. Abdomen is protuberant. Extremities reveal intact radial artery pulses bilaterally. Trace pedal edema noted. Results & Data Vital Signs (Past 12 Hours) Vital Signs Temp Pulse Pulse Pulse Resp BP BP 09/04/22 07:02 74 09/04/22 06:59 36.9 C 55 L 20 149/89 H 09/04/22 03:39 59 L 09/04/22 02:39 36.6 C 55 L 18 131/79 03/25/23 02:37 36.6 C 55 L 18 131/79 09/04/22 01:00 58 L 18 134/86 09/04/22 00:30 64 21 119/76 09/04/22 00:00 67 14 123/77 09/03/22 23:30 63 16 129/84 09/03/22 23:00 57 L 20 09/03/22 23:00 139/80 Pulse Ox O2 Del Method 09/04/22 07:02 09/04/22 06:59 97 Room Air 09/04/22 03:39 09/04/22 02:39 99 Room Air 09/04/22 02:37 99 Room Air 09/04/22 01:00 97 Room Air 09/04/22 00:30 99 Room Air 09/04/22 00:00 99 Room Air 09/03/22 23:30 98 Room Air 09/03/22 23:00 97 09/03/22 23:00 Laboratory Results CBC notes hemoglobin 9.7, hematocrit 30, white count 7.9, and platelet count [id number]. Electrolytes note a sodium of 136, potassium 3.8, chloride 109, bicarb 20, BUN 9, creatinine 0.57, and glucose of 89. Initial high sensitivity troponin was 14.3 with follow-up values of 21.3, 16.9, and 12.6. Diagnostic Findings EKG notes normal sinus rhythm and borderline left atrial enlargement. equipment monitor phototypesetting is benign. CT scan of chest shows no evidence of a pulmonary embolism. There were no acute findings within the aorta. Heart size is normal without evidence of cardiomegaly or a pericardial effusion. CT scan of chest is normal. PG Care Time/CCT Total # of Minutes Spent Total Time Spent with Patient: Total time spent is greater than 50% in coordination of care (as documented) at patient's floor/unit and/or counseling patient: Coding Level of Care Code 82165 IN/OBS CONSULT LVL 4,60M Diagnoses Chest pain during O99.891; R07.9 Elevated troponin R77.8
--- NOTE | 2022-09-04 11:27 | XCELERA ---
[id number]
--- NOTE | 2022-09-04 12:03 | Obstetrical Progress Note ---
Date of Service September 04, 2022 Assessment & Plan (1) Pre-eclampsia: Plan: Patient has met diagnostic criteria for mild preeclampsia, with urine pr/cr ratio of 0.3 and two [id number] blood pressures at least 4 hours apart. As per a discussion with Dr. Fontana this morning: Yolanda's single, manually- checked blood pressure in the office setting, which was not confirmed by a repeat at the time and was contradicted by a normal range automated blood pressure upon the patient's arrival to L&D, has not been used in her diagnosis just in case it was an outlier. The patient's chest pain is not of 100% clear origin, but we are confidently able to exclude PE and cardiomyopathy / pericarditis after the workup done during this admission. Minimal physiologic effusions and likely - related minor troponin elevations are noted, but not likely of clinical significance after d/w cardiology, whose input is appreciated. Given the presentation of her chest symptoms primarily when lying down at night, GERD is a very likely culprit in 3rd trimester of , and TUMS may offer relief without much risk, which the patient was advised. The patient did note a headache this morning, but only mentioned this at the same time that she also disclosed it had completely resolved with tylenol. Since the hallmark headache of severe preeclampsia is due to HTN and does NOT respond to tylenol, I do not feel this should be managed as diagnostic of severe preeclampsia. Her BP at the time was 143/84, as well, making HTN-related head pain unlikely. Finally, although epigastric or RUQ pain can be a sign of severe preeclampsia, the mechanism of such is liver inflammation, and the patient's platelets and AST/ALT are currently within normal limits. At this time I feel it is most appropriate to maintain her diagnosis as mild preeclampsia. I have given the patient [facility] precautions, ie notify us promptly if she develops a DICK which does not respond to tylenol, RUQ pain which is significant and persistent, swelling, or vision changes. We will manage her with standard mild preeclampsia protocol: outpatient care with weekly follow up for BP and lab checks with testing in the office. Her section will need to be moved to 37-38w range, and patient was made aware that progression to severe preeclampsia may trigger even earlier delivery. She works as a [employer] and is typically scheduled for 12 hour shifts. She was advised to request the standard work guidelines from the office at her appointment on Tue or Tuesday, to assist her in requesting no more than 8 hours at a time. (2) Chest pain due to GERD: Plan: See above. Admission and Anticipated Discharge Date Admission Date: September 03, 2022 Subjective Patient seen and examined along with Dr. Leal, after discussing with him by phone earlier today as well. Patient notes her chest pressure, not pain, has never been severe / always is tolerable, but does fluctuate in intensity, and is notably worse when she's lying down and at night. This has gone on for several days. It is currently not at its worst but also is not 100% gone right now. She did receive tylenol, and feels that it did make a mild headache which she had this morning go away completely, but did not affect the chest pressure since that was already at a low intensity and is still at a low intensity. She notes that she has had nausea off and on "for several weeks" that is not currently present. She has not had issues with edema, denies vision changes, is not having headaches (but see above, she did admit to one earlier that's now gone when I specifically asked about the impact of this dose of tylenol), and does not have RUQ pain (but did note "a feeling of indigestion" that accompanied her nausea for the last few weeks, and pointed to the entire upper abdomen when describing this). Physical Exam Physical Exam: She is sitting upright and moving normally with legs on and off the bed, sitting up, laying down, etc throughout our visit. Does not show any signs of distress. Speaking fluidly. Smiling. Was getting vitals / oral temp taken when I first arrived in the room. Constitutional: WD/WN, vitals as above Eyes: + anicteric sclerae ENMT: Ears: no hearing impairment Neck: no nuchal rigidity Respiratory: normal respiratory effort and able to speak in complete sentences; no respiratory distress and no cough Cardiovascular: Rate/Rhythm: regular rate Vessels: normal peripheral pulses Extremities: + edema (barely-visible sock impressions at ankles) Yung's negative, no calf tenderness Chest (Breasts): Chest: normal inspection of chest Gastrointestinal (Abdomen): Inspection/Auscultation: + abdomen distended (Gravid, AGA, nontender uterine fundus and upper abdomen / epigastrium) Percussion/Palpation: abdomen nontender and no hepatosplenomegaly Tenderness not consistently elicited with inspiration during palpation of liver edge. Musculoskeletal: no cyanosis or clubbing, extremities motor strength 5/5 Skin: no rashes, warm and dry Neurologic: patellar DTR's 2+ bilat, sensation intact (reflexes present patellar/achilles, no clonus) Psychiatric: A+Ox3, euthymic affect Genitourinary: NST from this AM reactive per 2x L&D RNs Results & Data Vital Signs (Past 12 Hours) Vital Signs Temp Pulse Pulse Pulse Resp BP BP 09/04/22 11:35 97.9 F 61 18 143/84 H 09/04/22 07:02 74 09/04/22 06:59 98.4 F 55 L 20 149/89 H 09/04/22 03:39 59 L 09/04/22 02:39 97.9 F 55 L 18 131/79 09/04/22 02:37 97.9 F 55 L 18 131/79 09/04/22 01:00 58 L 18 134/86 09/04/22 00:30 64 21 119/76 09/04/22 00:00 67 14 123/77 Pulse Ox O2 Del Method 09/04/22 11:35 98 Room Air 09/04/22 07:02 09/04/22 06:59 97 Room Air 09/04/22 03:39 09/04/22 02:39 99 Room Air 09/04/22 02:37 99 Room Air 09/04/22 01:00 97 Room Air 09/04/22 00:30 99 Room Air 09/04/22 00:00 99 Room Air Laboratory Results Laboratory Results - last 24 hr 09/03/22 09/03/22 09/03/22 15:15 15:15 15:15 WBC 7.85 RBC 4.10 L Hgb 10.6 L Hct 33.3 L MCV 81.2 MCH 25.9 MCHC 31.8 L RDW Std Deviation 42.2 RDW Coeff of Zack 14.5 Plt Count 181 MPV 11.5 Immature Gran % (Auto) 1.0 Neut % (Auto) 64.9 Lymph % (Auto) 25.7 Mcduffie % (Auto) 7.6 Eos % (Auto) 0.5 Baso % (Auto) 0.3 Neut # (Auto) 5.09 Lymph # (Auto) 2.02 Mcduffie # (Auto) 0.60 H Eos # (Auto) 0.04 Baso # (Auto) 0.02 Immature Gran # (Auto) 0.08 PT 9.9 INR 0.9 APTT 23.6 PTT Ratio 0.9 Sodium 137 Potassium 4.1 Chloride 108 H Carbon Dioxide 22 Anion Gap 7 BUN 9 Creatinine 0.69 Est Cr Clr Drug Dosing 123.4 Est GFR ( Amer) 139.2 Est GFR (Non-Af Amer) 120.1 BUN/Creatinine Ratio 13.0 Glucose 84 Uric Acid 7.6 H Calcium 8.8 Iron TIBC Unsaturated IBC Transferrin % Sat Ferritin Total Bilirubin 0.3 AST 16 ALT 11 Alkaline Phosphatase 107 H Troponin I High Sens 14.3 H Total Protein 6.1 Albumin 3.4 Globulin 2.7 Albumin/Globulin Ratio 1.3 Urine Color Urine Appearance Urine pH Ur Specific Morgan Urine Protein Urine Glucose (UA) Urine Ketones Urine Blood Urine Nitrite Urine Bilirubin Urine Urobilinogen Ur Leukocyte Esterase Urine WBC (Auto) Urine RBC (Auto) U Hyaline Cast (Auto) U Epithel Cells (Auto) Urine Bacteria (Auto) Ur Random Creatinine U Random Total Protein Protein/Creatinin Ratio SARS-CoV-2, RNA, NAAT 09/03/22 09/04/22 09/04/22 18:23 00:10 02:10 WBC RBC Hgb Hct MCV MCH MCHC RDW Std Deviation RDW Coeff of Zack Plt Count MPV Immature Gran % (Auto) Neut % (Auto) Lymph % (Auto) Mcduffie % (Auto) Eos % (Auto) Baso % (Auto) Neut # (Auto) Lymph # (Auto) Mcduffie # (Auto) Eos # (Auto) Baso # (Auto) Immature Gran # (Auto) PT INR APTT PTT Ratio Sodium Potassium Chloride Carbon Dioxide Anion Gap BUN Creatinine Est Cr Clr Drug Dosing Est GFR ( Amer) Est GFR (Non-Af Amer) BUN/Creatinine Ratio Glucose Uric Acid Calcium Iron TIBC Unsaturated IBC Transferrin % Sat Ferritin Total Bilirubin AST ALT Alkaline Phosphatase Troponin I High Sens 21.3 H Total Protein Albumin Globulin Albumin/Globulin Ratio Urine Color Yellow Urine Appearance Clear Urine pH 7.0 Ur Specific Morgan 1.020 Urine Protein Negative Urine Glucose (UA) Negative Urine Ketones Negative Urine Blood Negative Urine Nitrite Negative Urine Bilirubin Negative Urine Urobilinogen Negative Ur Leukocyte Esterase 2+ H Urine WBC (Auto) 5-10 H Urine RBC (Auto) 0-4 U Hyaline Cast (Auto) 1-5 U Epithel Cells (Auto) >30 H Urine Bacteria (Auto) 1+ H Ur Random Creatinine U Random Total Protein Protein/Creatinin Ratio SARS-CoV-2, RNA, NAAT NEGATIVE 09/04/22 09/04/22 09/04/22 02:10 03:31 03:31 WBC 7.92 RBC 3.69 L Hgb 9.7 L Hct 30.0 L MCV 81.3 MCH 26.3 MCHC 32.3 RDW Std Deviation 42.5 RDW Coeff of Zack 14.6 H Plt Count 165 MPV 11.8 Immature Gran % (Auto) 0.6 Neut % (Auto) 63.8 Lymph % (Auto) 26.6 Mcduffie % (Auto) 8.2 Eos % (Auto) 0.5 Baso % (Auto) 0.3 Neut # (Auto) 5.05 Lymph # (Auto) 2.11 Mcduffie # (Auto) 0.65 H Eos # (Auto) 0.04 Baso # (Auto) 0.02 Immature Gran # (Auto) 0.05 PT INR APTT PTT Ratio Sodium 136 Potassium 3.8 Chloride 109 H Carbon Dioxide 20 L Anion Gap 7 BUN 9 Creatinine 0.57 L Est Cr Clr Drug Dosing 149.3 Est GFR ( Amer) 148.3 Est GFR (Non-Af Amer) 127.9 BUN/Creatinine Ratio 15.8 Glucose 89 Uric Acid Calcium 8.6 Iron TIBC Unsaturated IBC Transferrin % Sat Ferritin Total Bilirubin 0.2 AST 14 ALT 9 Alkaline Phosphatase 93 Troponin I High Sens Total Protein 5.2 L Albumin 2.9 L Globulin 2.3 L Albumin/Globulin Ratio 1.3 Urine Color Urine Appearance Urine pH Ur Specific Morgan Urine Protein Urine Glucose (UA) Urine Ketones Urine Blood Urine Nitrite Urine Bilirubin Urine Urobilinogen Ur Leukocyte Esterase Urine WBC (Auto) Urine RBC (Auto) U Hyaline Cast (Auto) U Epithel Cells (Auto) Urine Bacteria (Auto) Ur Random Creatinine 30.9 U Random Total Protein 9.4 Protein/Creatinin Ratio 0.3 H SARS-CoV-2, RNA, NAAT 09/04/22 09/04/22 09/04/22 03:31 07:22 07:26 WBC RBC Hgb Hct MCV MCH MCHC RDW Std Deviation RDW Coeff of Zack Plt Count MPV Immature Gran % (Auto) Neut % (Auto) Lymph % (Auto) Mcduffie % (Auto) Eos % (Auto) Baso % (Auto) Neut # (Auto) Lymph # (Auto) Mcduffie # (Auto) Eos # (Auto) Baso # (Auto) Immature Gran # (Auto) PT INR APTT PTT Ratio Sodium Potassium Chloride Carbon Dioxide Anion Gap BUN Creatinine Est Cr Clr Drug Dosing Est GFR ( Amer) Est GFR (Non-Af Amer) BUN/Creatinine Ratio Glucose Uric Acid Calcium Iron 37 TIBC 382 Unsaturated IBC 345 Transferrin % Sat 10 L Ferritin 15.3 Total Bilirubin AST ALT Alkaline Phosphatase Troponin I High Sens 16.9 H D 12.6 D Total Protein Albumin Globulin Albumin/Globulin Ratio Urine Color Urine Appearance Urine pH Ur Specific Morgan Urine Protein Urine Glucose (UA) Urine Ketones Urine Blood Urine Nitrite Urine Bilirubin Urine Urobilinogen Ur Leukocyte Esterase Urine WBC (Auto) Urine RBC (Auto) U Hyaline Cast (Auto) U Epithel Cells (Auto) Urine Bacteria (Auto) Ur Random Creatinine U Random Total Protein Protein/Creatinin Ratio SARS-CoV-2, RNA, NAAT PG Care Time/CCT Total # of Minutes Spent Total Time Spent with Patient: Total time spent is greater than 50% in coordination of care (as documented) at patient's floor/unit and/or counseling patient: Coding Level of Care Code 80287 SUB INP/OBS CARE 3/50MIN Diagnoses Pre-eclampsia O14.90 Chest pain due to GERD K21.9; R07.9
[2022-09-04] MEDS ORDERED: ALUMINUM/MAGNESIUM SUSP 18 ML, LIDOCAINE VISCOUS 2% SOLN 6 ML, BARCODE IDENTIFIER 1 EACH PO ONE (12:05)
--- NOTE | 2022-09-04 12:22 | Communication Note ---
Date of Service: September 04, 2022 Consultation done this morning by hospitalists. Consulted Dr Leal/cardiology. ECHO w/ some mitral regurg but no wma, Trop trended down and no longer elevated EKG repeated this AM w/o evidence of myocarditis/pericarditis Given dose of Tylenol, states some improvement but still having some pressure sensation (currently eating stuffed shells with sauce) and asked RN to administer GI cocktail to see if more related to reflux. No recent illness/viral illness/fevers/chills. CT scan of chest normal. Discussed with Dr Bryson and patient and recommended staying away from spicy foods as this dose appear more related to reflux symptomatology. Will send pepcid for reflux symptoms and can monitor response as outpatient. Going to have close follow up for pre-eclampsia with [employer]. Patient does state she has PCP, Dr Quispe.
--- NOTE | 2022-09-04 12:38 | Electrocardiogram Report ---
Test Reason : Blood Pressure : / mmHG Vent. Rate : 055 BPM Atrial Rate : 055 BPM P-R Int : 124 ms QRS Dur : 076 ms QT Int : 446 ms P-R-T Axes : 049 060 033 degrees QTc Int : 426 ms Sinus bradycardia RSR' or QR pattern in V1 suggests right ventricular conduction delay Otherwise Normal ECG When compared with ECG of 03-SEP-2022 15:09, No significant change was found Confirmed by Travon Leal ([id number]) on 09/04/2022 12:37:49 PM Referred By: REFERRED SELF Confirmed By:Travon Leal
== END 2022-09-04 15:21 | disposition home or self-care (01) ==
LOC: EDBD → ED 14:31 → 2N 14:31 → MERGE 23:29 → 2N 09-04 01:45